=== PATIENT | female | born 1945 | race Caucasian/White ===

== ENCOUNTER 2018-06-19 15:36 | Emergency (ER) | payer OTHER ==
[~2018-06-19] VITALS: Ht 162.6 cm; Wt 79.4 kg
[2018-06-19 15:36] VITALS: BP 146/61
--- NOTE | 2018-06-19 15:36 | NUR ---
pt mikey bls to er bed 05
--- NOTE | 2018-06-19 15:51 | NUR ---
Patient being evaluated by physician at bedside.
--- NOTE | 2018-06-19 15:55 | NUR ---
PATIENT BIBA FROM [facility] FOR [facility]. PER EMS PT ROLLED OUT OF BED AND FELL ONTO FACE. NOTED REDNESS TO FACE, BUT PER EMS THIS IS NORMAL FOR PT. HX OF HEART DZ, DM, PSYCHOSIS, DEMENTIA, PACEMAKER, CAD, DYSPHAGIA, PACEMAKER, CONTRACTURE OF HANDS, HYPOTHYROIDISM, PT IS APHSIC, RESPOND TO PAINFUL STIMULI, REDNESS AND SWOLLEN NOTED TO LEFT SIDE OF FACE, LUNGS CLEAR BL; HR EVEN AND REGULAR; SOFT ABDOMEN WITH ACTIVE BOWEL SOUNDS, INCONTINENT WITH B&B'S, CONTRACTURES TO BOTH HANDS, SEVERE WEAKNESS TO BLE, SKIN IS WARM AND DRY TO TOUCH, FLACC 7, VSS; PATIENT POSITIONED FOR COMFORT; HOB ELEVATED; BEDRAILS UP X2; BED DOWN. ER MD MADE AWARE OF PT STATUS.
[2018-06-19 16:16] LABS: BASOPHILS % (AUTO) 0.4 % (0.0-2.0); EOSINOPHILS # (AUTO) 0.1 K/uL (0-0.4); EOSINOPHILS % (AUTO) 1.7 % (0.0-4.0); HEMATOCRIT 39.7 % (36-48); HEMOGLOBIN 13.7 g/dL (12.0-16.0); LYMPHOCYTES # (AUTO) 1.4 K/uL (2.5-16.5); MEAN CORPUSCULAR HEMOGLOBIN 32 pg (27-31); MEAN CORPUSCULAR HGB CONC 35 g/dL (33-37); MEAN CORPUSCULAR VOLUME 91.6 fL (80-94); MONOCYTES # (AUTO) 0.5 K/uL (0.8-1.0); MONOCYTES % (AUTO) 9.3 % (1.7-9.3); NEUTROPHILS # (AUTO) 3.3 K/uL (1.8-7.7); NEUTROPHILS % (AUTO) 61.6 % (42.2-75.2); PLATELET COUNT (AUTO) 206 K/uL (140-450); RED BLOOD CELL COUNT(AUTO) 4.33 MIL/uL (4.20-5.40); RED CELL DISTRIBUTION WIDTH 12.8 % (11.6-13.7); WHITE BLOOD COUNT (AUTO) 5.3 K/uL (4.8-10.8)
--- NOTE | 2018-06-19 16:20 | NUR ---
# 14 FR Urinary catheter inserted utilizing sterile technique. Urine sample collected and sent to lab. Pt tolerated procedure WELL.
--- NOTE | 2018-06-19 16:25 | NUR ---
PT IS TAKEN TO CT WITH PROVIDER RELATIONS CONSULTANT.
--- NOTE | 2018-06-19 16:26 | NUR ---
PATIENT TRANSPORTED TO CT
[2018-06-19 16:30] LABS: ANION GAP 16.5 (8-16); ASPARTATE AMINOTRANSFERASE 17 U/L (15-37); CARBON DIOXIDE 24.3 mmol/L (21-32); CHLORIDE 102 mmol/L (98-107); CREATININE 0.9 mg/dL (0.6-1.3); GLUCOSE 172 mg/dL (74-106); POTASSIUM 3.8 mmol/L (3.5-5.1); SODIUM SERUM 139 mmol/L (136-145); TOTAL BILIRUBIN 0.5 mg/dL (0.0-1.0); UREA NITROGEN, BLOOD 16 mg/dL (7-18)
--- NOTE | 2018-06-19 16:45 | NUR ---
PATIENT RETURNED TO ER BED [address]
[2018-06-19 17:21] LABS: APPEARANCE,URINE HAZY (CLEAR); BILIRUBIN,URINE NEGATIVE (NEGATIVE); BLOOD, URINE 3+ (NEGATIVE); COLOR,URINE BROWN (YELLOW); LEUKOCYTE ESTERASE ,URINE 2+ (NEGATIVE); NITRITE, URINE POSITIVE (NEGATIVE); PH,URINE 6.5 (5.0-9.0); UGLUCOSE NEGATIVE (NEGATIVE)
--- NOTE | 2018-06-19 17:29 | NUR ---
Rhonda wu in ED - 06/19/18 at 1740 by MNCELESTINEX PT IS RESTING IN BED, NO S/S OF DISTRESS, VSS.
--- NOTE | 2018-06-19 17:30 | NUR ---
PT IS AWAKE, ORIENTED TO PERSON AND PLACE, STATED HER LEFT EYES SORE, VSS, NO S/S OF DISTRESS.
[2018-06-19 17:32] LABS: RBC,URINE TOO NUMEROUS TO COUN /HPF (0-5); WBC,URINE TOO MANY TO COUNT /HPF (0-5)
[2018-06-19] MEDS ORDERED: LEVOFLOXACIN 500 MG TAB PO ONE (17:50)
--- NOTE | 2018-06-19 18:06 | NUR ---
MEDICATION GIVEN CRASHED WITH APPLE SOURSE, PT ABLE TO SWALLOW, MEDICATION INDICATION AND SIDE EFFECTS EXPLAINED TO PT, PT VERBALIZED UNDERSTANDING.
--- NOTE | 2018-06-19 19:10 | NUR ---
Patient discharged with v/s stable. Written and verbal after care instructions given and explained. Patient states 0/10 at this time, and states ready to go back to her facility. Patient alert, oriented and verbalized understanding of instructions. [facility]. All questions addressed prior to discharge. ID band removed. Patient advised to follow up with PMD. Rx of Levaquin given. Patient educated on indication of medication including possible reaction and side effects. Opportunity to ask questions provided and answered.
--- NOTE | 2018-06-19 19:10 | NUR ---
TRANSPORT ARRIVED FOR PT
[2018-06-19 19:20] VITALS: BP 127/65
== END 2018-06-19 19:10 | disposition home or self-care (01) ==
LOC: MED 15:36
DX: S09.90XA Unspecified injury of head, initial encounter (principal); N39.0 Urinary tract infection, site not specified; E11.9 Type 2 diabetes mellitus without complications; I10 Essential (primary) hypertension; E03.9 Hypothyroidism, unspecified; F03.90 Unspecified dementia, unspecified severity, without behavioral disturbance, psychotic disturbance, mood disturbance, and anxiety; Z86.73 Personal history of transient ischemic attack (TIA), and cerebral infarction without residual deficits; W06.XXXA Fall from bed, initial encounter; Y93.89 Activity, other specified; Y92.89 Other specified places as the place of occurrence of the external cause; Y99.8 Other external cause status
CPT/HCPCS: 36415; 70450; 70486; 71045; 72125; 80053; 81001; 85025; 87086; 99284; Q0092; 87186; C1758